=== PATIENT | male | born 1980 | race Caucasian/White ===

== ENCOUNTER 2021-10-08 19:04 | Outpatient (REF) | payer BC, MEDICAID, SELFPAY ==
[2021-10-08 21:41] LABS: Calculated LDL 120 mg/dL (<100); Cholesterol 178 mg/dL (<200); HDL Cholesterol 37 mg/dL (40-60); Triglyceride 109 mg/dL (<150)
== END 2021-10-08 19:05 | disposition home or self-care (01) ==
LOC: NCHCN 19:04
PROVIDERS: PCP Internal Medicine; Visit Provider Internal Medicine
DX: Z13.220 Encounter for screening for lipoid disorders (principal)
CPT/HCPCS: 80061

== ENCOUNTER → 2022-07-10 08:29 | Outpatient (BNVA) | payer MEDICARE, SELFPAY | PROVIDERS: PCP Internal Medicine; Referring Provider Internal Medicine; Visit Provider Psychiatry & Neurology Neurology | DX: G43.709 Chronic migraine without aura, not intractable, without status migrainosus (principal); G40.109 Localization-related (focal) (partial) symptomatic epilepsy and epileptic syndromes with simple partial seizures, not intractable, without status epilepticus; R41.89 Other symptoms and signs involving cognitive functions and awareness; U09.9 Post COVID-19 condition, unspecified; R25.1 Tremor, unspecified | CPT/HCPCS: 99214 ==

== ENCOUNTER 2022-08-12 04:18 | Outpatient (CLI) | payer MEDICARE, SELFPAY ==
--- NOTE | 2022-08-17 21:16 | PDOC.EEG_ITS ---
Neurology EEG EEG: [facility] Department of Neurology LONG-TERM AMBULATORY EEG REPORT Date of Recordin08/12/22 at 15:21:38 to 08/13/22 at 09:27:03 Interpreting Physician: Dr. Kaylan Wood PCP/Referring Provider: Dr. Bernard Bell Reason for study: David has a known history of focal seizures and non-epileptic events with more recent staring spells and confusion s/p COVID infection. Current Medications: Home Medications Medication Instructions Recorded Confirmed Type cholecalciferol (vitamin D3) 25 1,000 unit PO DAILY 09/10/17 07/10/22 History mcg (1,000 unit) tablet pediatric multivitamin no.19-folic 200 mcg PO DAILY 09/10/17 07/10/22 History acid 200 mcg chewable tablet (Flintstones Multi-Vitamins Gummies) melatonin 5 mg tablet 5 mg PO HS PRN 09/27/18 07/10/22 History topiramate 200 mg tablet (Topamax) 200 mg PO BID #180 tabs 11/05/21 07/10/22 Rx METHODS: An 18-channel digitized electroencephalogram was recorded in the ambulatory setting with video. The 10/20 international system of electrode placement was used and bipolar and referential electrode montages were recorded. In addition to EEG the patient was monitored for EKG and by video. Activation procedures of photic stimulation and hyperventilation were performed if applicable. The duration of the recording was ~18 hours. DESCRIPTION OF EEG: Waking background activity: During maximal wakefulness a 9-Hz posterior background rhythm was present which was well-modulated, symmetrical, reactive to eye opening, and of moderate voltage. Faster frequencies were present in the bilateral anterior head regions. There was a normal anterior-posterior voltage gradient. Drowsy and sleeping background activity: During drowsiness, there was attenuation of the posterior dominant background rhythm and vertex waves. Normal stage II and III sleep was present with symmetrical sleep spindles, K- complexes, and vertex waves with slowing of the background rhythm to delta/theta frequencies. REM sleep manifested by rapid lateral eye movements and faster background rhythms was recorded. Arousal was unremarkable. Interictal abnormalities: Occasional bilateral, high-amplitude, independent temporal spike-waves, maximal at T3 and F4, with large mcnamara. These discharges became much more frequent during sleep, particularly on the right, occurring in runs up to 8 seconds duration. Ictal findings: No events captured. Activating Procedures: Photic stimulation was performed which produced no posterior driving response. Hyperventilation was not performed. EKG: EKG revealed normal sinus rhythm. INTERPRETATION: This long-term EEG is abnormal due to bilateral, independent temporal spike- waves, maximal at T3 and F4, which become quite frequent during sleep. No events captured. PRIOR EEG: -EEG (08/08/05): normal in the awake and drowsy state. -Video EEG (02/28 to 03/06/10 at [facility] [place]): interictal bilateral temporal independent spike waves.? Several events were captured manifested as a feeling funny, brief muscle twitch with head turning to the right, subjective left arm shaking, and right greater than left arm shaking. All of these were not associated with any type of EEG abnormalities. He was subsequently diagnosed with psychogenic nonepileptic seizures. ? -Amb EEG (10/22/17-10/24/17): Frequent, right>left bitemporal spike- and sharp- wave discharges.? 2 typical events captured manifested by hand shaking and a few head jerks and hand shaking with mild dizziness with no associated epileptiform changes.? He also had frequent nocturnal arousals. 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 Overall, this EEG is similar to previous recordings. No events were captured. Kaylan Wood MD
== END 2022-08-12 04:19 | disposition home or self-care (01) ==
LOC: RT 04:18
PROVIDERS: PCP Internal Medicine; Visit Provider Psychiatry & Neurology Neurology
DX: G40.109 Localization-related (focal) (partial) symptomatic epilepsy and epileptic syndromes with simple partial seizures, not intractable, without status epilepticus (principal)
CPT/HCPCS: 95714; 95720

== ENCOUNTER → 2022-08-26 13:29 | Outpatient (BNVA) | payer MEDICARE, SELFPAY | PROVIDERS: PCP Internal Medicine; Referring Provider Internal Medicine; Visit Provider Psychiatry & Neurology Neurology | DX: G43.009 Migraine without aura, not intractable, without status migrainosus (principal); G40.109 Localization-related (focal) (partial) symptomatic epilepsy and epileptic syndromes with simple partial seizures, not intractable, without status epilepticus; R25.1 Tremor, unspecified | CPT/HCPCS: 99214 ==

== ENCOUNTER → 2022-11-04 12:51 | Outpatient (BNVA) | payer MEDICARE, MEDICAID, SELFPAY | PROVIDERS: PCP Internal Medicine; Referring Provider Internal Medicine; Visit Provider Psychiatry & Neurology Neurology | DX: G40.109 Localization-related (focal) (partial) symptomatic epilepsy and epileptic syndromes with simple partial seizures, not intractable, without status epilepticus (principal); G43.009 Migraine without aura, not intractable, without status migrainosus; G31.84 Mild cognitive impairment of uncertain or unknown etiology; G47.33 Obstructive sleep apnea (adult) (pediatric); R25.1 Tremor, unspecified | CPT/HCPCS: 99214 ==

== ENCOUNTER 2022-12-05 01:22 | Outpatient (CLI) | payer MEDICARE, MEDICAID, SELFPAY ==
[2022-12-07 13:59] LABS: Levetiracetam 15.7 mcg/mL
[2022-12-08 20:50] LABS: Topiramate 15.8 mcg/mL
== END 2022-12-05 01:23 | disposition home or self-care (01) ==
LOC: LBO 01:23
PROVIDERS: PCP Internal Medicine; Visit Provider Psychiatry & Neurology Neurology
DX: G40.109 Localization-related (focal) (partial) symptomatic epilepsy and epileptic syndromes with simple partial seizures, not intractable, without status epilepticus (principal); Z51.81 Encounter for therapeutic drug level monitoring; Z79.899 Other long term (current) drug therapy
CPT/HCPCS: 36415; 80177; 80201

== ENCOUNTER 2022-12-08 19:09 | Outpatient (REF) | payer MEDICARE, MEDICAID, SELFPAY ==
[2022-12-08 15:07] LABS: HCT 51.1 % (40.0-50.0); HGB 17.3 g/dL (13.5-17.5); MCH 29.7 pg (27.0-33.0); MCHC 33.9 % (32.0-36.0); MCV 88 fL (80-95); MPV 11.2 fL (8.0-11.0); Platelet Count 181 10^3/uL (130-400); RBC 5.82 10^6/uL (4.36-5.78); RDW 12.4 % (11.8-14.1); RDW-SD 40.2 fL
[2022-12-08 15:47] LABS: ALT 33 U/L (16-63); AST 16 U/L (15-37); Albumin 4.4 g/dL (3.4-5.0); Alkaline Phosphatase 110 U/L (46-116); BUN 21 mg/dL (7-18); Bilirubin, Total 0.3 mg/dL (0.2-1.0); Calcium 9.2 mg/dL (8.5-10.1); Chloride 108 mmol/L (98-107); Estimated GFR 96.97 (mL/min/1.73m2); Glucose 107 mg/dL (74-106); Potassium 4.4 mmol/L (3.5-5.1); Sodium 144 mmol/L (136-145); TSH 2.04 uIU/mL (0.36-3.74); Vitamin B12 269 pg/mL (193-986)
== END 2022-12-08 19:10 | disposition home or self-care (01) ==
LOC: NCHCN 19:09
PROVIDERS: PCP Internal Medicine; Visit Provider Internal Medicine
DX: R56.9 Unspecified convulsions (principal); G80.9 Cerebral palsy, unspecified; R41.0 Disorientation, unspecified; F79 Unspecified intellectual disabilities; E53.8 Deficiency of other specified B group vitamins
CPT/HCPCS: 80053; 85027; 82607; 84443

== ENCOUNTER → 2022-12-10 10:30 | Outpatient (BNVA) | payer MEDICARE, MEDICAID, SELFPAY | PROVIDERS: PCP Internal Medicine; Referring Provider Internal Medicine; Visit Provider Psychiatry & Neurology Neurology | DX: R40.4 Transient alteration of awareness (principal); G43.709 Chronic migraine without aura, not intractable, without status migrainosus; G31.84 Mild cognitive impairment of uncertain or unknown etiology; G47.33 Obstructive sleep apnea (adult) (pediatric); Z86.16 Personal history of COVID-19; R25.1 Tremor, unspecified | CPT/HCPCS: 99214 ==

== ENCOUNTER 2022-12-16 02:55 | Outpatient (CLI) | payer MEDICARE, MEDICAID, SELFPAY ==
--- NOTE | 2022-12-29 13:29 | PDOC.EEG_ITS ---
Neurology EEG EEG: [facility] Department of Neurology LONG-TERM AMBULATORY EEG REPORT Date of Recordin12/16/22 at 15:35:59 to 12/18/22 at 16:00:04 Interpreting Physician: Dr. Kaylan Wood PCP/Referring Provider: Dr. Bernard Bell Reason for study: David has a known history of focal seizures and non-epileptic events with more recent and increasing staring spells and confusion s/p COVID infection and despite increase in anti-seizure medications. Current Medications: Home Medications Medication Instructions Recorded Confirmed Type cholecalciferol (vitamin D3) 25 1,000 unit PO DAILY 09/10/17 12/10/22 History mcg (1,000 unit) tablet pediatric multivitamin no.19-folic 200 mcg PO DAILY 09/10/17 12/10/22 History acid 200 mcg chewable tablet (Flintstones Multi-Vitamins Gummies) melatonin 5 mg tablet 5 mg PO HS PRN 09/27/18 12/10/22 History topiramate 200 mg tablet (Topamax) 200 mg PO BID #180 tabs 08/26/22 12/10/22 Rx lorazepam 0.5 mg tablet 0.5 mg PO ONCE PRN 12/10/22 12/10/22 Rx anxiety/claustrophobia #3 tabs METHODS: An 18-channel digitized electroencephalogram was recorded in the ambulatory setting with video. The 10/20 international system of electrode placement was used and bipolar and referential electrode montages were recorded. In addition to EEG the patient was monitored for EKG and by video. Activation procedures of photic stimulation and hyperventilation were performed if applicable. The duration of the recording was ~46 hours. DESCRIPTION OF EEG: Waking background activity: During maximal wakefulness a 10-Hz posterior background rhythm was present which was well-modulated, symmetrical, reactive to eye opening, and of moderate voltage. Faster frequencies were present in the bilateral anterior head regions. There was a normal anterior-posterior voltage gradient. Drowsy and sleeping background activity: During drowsiness, there was atte nuation of the posterior dominant background rhythm and vertex waves. Normal stage II and III sleep was present with symmetrical sleep spindles, K-complexes, and vertex waves with slowing of the background rhythm to delta/theta frequencies. REM sleep manifested by rapid lateral eye movements and faster background rhythms was recorded. Arousal was unremarkable. Interictal abnormalities: Frequent bilateral, right>left, high-amplitude, independent, temporal spike-waves, maximal at T3 and F4, with large mcnamara, particularly on the right.? The discharges on the right were more apt to occur in runs up to 3-5 seconds. Ictal findings: No events were captured. Activating Procedures: Photic stimulation was performed which produced no posterior driving response. Hyperventilation was performed with moderate effort and produced no physiological slowing of the background. EKG: EKG revealed normal sinus rhythm. INTERPRETATION: This long-term EEG is abnormal due to frequent, bilateral, independent, right > left, temporal spike-waves, maximal at T3 and F4, with at times occurring in runs of 3-5 seconds at at times with a broad field, particularly on the right. No events captured. PRIOR EEG: -EEG (08/08/05): normal in the awake and drowsy state. -Video EEG (02/28 to 03/06/10 at [facility] [place]): interictal bilateral temporal independent spike waves.? Several events were captured manifested as a feeling funny, brief muscle twitch with head turning to the right, subjective left arm shaking, and right greater than left arm shaking. All of these were not associated with any type of EEG abnormalities. He was subsequently diagnosed with psychogenic nonepileptic seizures. ? -Amb EEG (10/22/17-10/24/17): Frequent, right>left bitemporal spike- and sharp- wave discharges.? 2 typical events captured manifested by hand shaking and a few head jerks and hand shaking with mild dizziness with no associated epileptiform changes.? He also had frequent nocturnal arousals. -Amb EEG (08/12/22-08/13/22 x 18hr): bilateral, independent temporal spike-waves, maximal at T3 and F4, which become quite frequent during sleep.? 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 Overall, this EEG is similar to previous recordings.? No events were captured. Kaylan Wood MD
== END 2022-12-16 02:56 | disposition home or self-care (01) ==
PROVIDERS: PCP Internal Medicine; Visit Provider Psychiatry & Neurology Neurology
DX: R68.89 Other general symptoms and signs (principal); R25.1 Tremor, unspecified
CPT/HCPCS: 95714; 95722

== ENCOUNTER 2023-01-02 00:41 | Outpatient (CLI) | payer MEDICARE, MEDICAID, SELFPAY ==
--- NOTE | 2023-01-02 08:30 | DI.MRI_ITS ---
Exam(s) MR BRAIN WO EXAM: MR BRAIN WO CLINICAL HISTORY: increase spells and memory changes,FOCAL EPILEPSY,G40.109 TECHNIQUE: Multiplanar multisequence MRI of the brain was performed. COMPARISON: No exams were available for comparison FINDINGS: CEREBRAL PARENCHYMA: There is no evidence of intracranial hemorrhage, mass effect, or shift of midline structures. There are no extra-axial fluid collections. Ventricles are not enlarged or shifted. There is no significant focal signal abnormality in the cerebellar hemispheres nor within the alex, m idbrain, and thalami. There is no abnormal signal abnormality in the periventricular white matter. There is no significant focal signal abnormality evident on diffusion imaging to suggest acute ischem ic event. PITUITARY GLAND: No mass nor parasellar abnormality. No obvious abnormality in the cavernous sinuses. FLOW VOIDS: The expected flow void are noted. No evidence of obvious aneurysm nor obvious vascular ma lformation. PARANASAL SINUSES: The visualized paranasal sinuses appear unremarkable. No obvious finding ORBITS: No obvious findings. IMPRESSION: No significant intracranial findings on this noninfused MRI scan of the brain. DATA REPOSITORY:
== END 2023-01-02 01:01 ==
LOC: DI 00:41
PROVIDERS: PCP Internal Medicine; Visit Provider Psychiatry & Neurology Neurology
DX: G40.109 Localization-related (focal) (partial) symptomatic epilepsy and epileptic syndromes with simple partial seizures, not intractable, without status epilepticus (principal)
CPT/HCPCS: 70551

== ENCOUNTER → 2023-01-06 11:22 | Outpatient (BNVA) | payer MEDICARE, MEDICAID, SELFPAY | PROVIDERS: PCP Internal Medicine; Referring Provider Internal Medicine; Visit Provider Psychiatry & Neurology Neurology ==

== ENCOUNTER → 2023-01-22 11:18 | Outpatient (BNVA) | payer MEDICARE, MEDICAID, SELFPAY | PROVIDERS: PCP Internal Medicine; Referring Provider Internal Medicine; Visit Provider Psychiatry & Neurology Neurology | DX: G43.009 Migraine without aura, not intractable, without status migrainosus (principal); G40.109 Localization-related (focal) (partial) symptomatic epilepsy and epileptic syndromes with simple partial seizures, not intractable, without status epilepticus; U09.9 Post COVID-19 condition, unspecified; R25.1 Tremor, unspecified; E53.8 Deficiency of other specified B group vitamins | CPT/HCPCS: 99204 ==

== ENCOUNTER → 2023-09-09 08:15 | Outpatient (BNVA) | payer MEDICARE, MEDICAID, SELFPAY | PROVIDERS: PCP Internal Medicine; Referring Provider Internal Medicine; Visit Provider Psychiatry & Neurology Neurology | DX: F81.9 Developmental disorder of scholastic skills, unspecified (principal); R47.9 Unspecified speech disturbances; G43.009 Migraine without aura, not intractable, without status migrainosus; G40.109 Localization-related (focal) (partial) symptomatic epilepsy and epileptic syndromes with simple partial seizures, not intractable, without status epilepticus; U09.9 Post COVID-19 condition, unspecified; R25.1 Tremor, unspecified | CPT/HCPCS: 99214 ==

== ENCOUNTER 2023-10-22 14:56 | Outpatient (REF) | payer MEDICARE, MEDICAID, SELFPAY ==
[2023-10-22 16:33] LABS: HCT 45.7 % (40.0-50.0); HGB 15.5 g/dL (13.5-17.5); MCH 29.2 pg (27.0-33.0); MCHC 33.9 % (32.0-36.0); MCV 86 fL (80-95); MPV 10.9 fL (8.0-11.0); Platelet Count 255 10^3/uL (130-400); RDW 12.3 % (11.8-14.1); RDW-SD 38.8 fL; WBC 7.35 10^3/uL (4.4-10.8)
[2023-10-22 16:45] LABS: ALT 43 U/L (16-63); AST 22 U/L (15-37); Alkaline Phosphatase 119 U/L (46-116); Anion Gap 14.4 mmol/L (3-11); BUN 25 mg/dL (7-18); Bilirubin, Total 0.3 mg/dL (0.2-1.0); CO2 20.6 mmol/L (21.0-32.0); CREATININE 0.9 mg/dL (0.70-1.30); Calcium 8.8 mg/dL (8.5-10.1); Chloride 109 mmol/L (98-107); Estimated GFR 109.36 (mL/min/1.73m2); Glucose 98 mg/dL (74-106); Potassium 4.1 mmol/L (3.5-5.1); Sodium 144 mmol/L (136-145); Total Protein 7.5 g/dL (6.4-8.2)
[2023-10-26 18:28] LABS: Vitamin B12 405 pg/mL (211-911)
== END 2023-10-22 14:57 | disposition home or self-care (01) ==
LOC: NCHCN 14:56
PROVIDERS: Psychiatry & Neurology Neurology; PCP Family Medicine; Visit Provider Family Medicine
DX: G40.909 Epilepsy, unspecified, not intractable, without status epilepticus (principal)
CPT/HCPCS: 80053; 85027; 80201; 82607

== ENCOUNTER → 2024-03-14 12:42 | Outpatient (BNVA) | payer MEDICARE, MEDICAID, SELFPAY | PROVIDERS: PCP Family Medicine; Visit Provider Psychiatry & Neurology Neurology | DX: G43.009 Migraine without aura, not intractable, without status migrainosus (principal); G40.109 Localization-related (focal) (partial) symptomatic epilepsy and epileptic syndromes with simple partial seizures, not intractable, without status epilepticus; R25.1 Tremor, unspecified; R47.9 Unspecified speech disturbances | CPT/HCPCS: 99214 ==

== ENCOUNTER → 2024-05-16 14:41 | Outpatient (BNVA) | payer MEDICARE, MEDICAID, SELFPAY | PROVIDERS: PCP Family Medicine; Referring Provider Family Medicine; Visit Provider Psychiatry & Neurology Neurology | DX: G80.0 Spastic quadriplegic cerebral palsy (principal); G40.109 Localization-related (focal) (partial) symptomatic epilepsy and epileptic syndromes with simple partial seizures, not intractable, without status epilepticus; G43.009 Migraine without aura, not intractable, without status migrainosus; R25.1 Tremor, unspecified; R47.9 Unspecified speech disturbances | CPT/HCPCS: 99213 ==

== ENCOUNTER 2024-08-26 01:03 | Outpatient (CLI) | payer MEDICARE, MEDICAID, SELFPAY ==
--- OUTSIDE RECORDS SUMMARY | 2024-08-26 01:08 | XMS_ITS | Referral Summary ---
Author Organization [facility] Address [address] [place] [address] Care Team Providers Care Bit Sharpener Operator Name Role Phone Lorenzo Luong MD Primary Care Provider Social History Tobacco Use Types Packs/Day Years Used Date Smoking Tobacco: Never Assessed Sex and Gender Information Value Date Recorded Sex Assigned at Not on file Legal Sex Male 17:37 EST Gender Identity Not on file Sexual Orientation Not on file Plan of Treatment Not on file Care Teams Bit Sharpener Operator Relationship Specialty Start Date End Date Lorenzo Luong MD [address] [place] [id number] PCP - General 06/17/15
--- OUTSIDE RECORDS SUMMARY | 2024-08-26 01:08 | XMS_ITS | Clinical Summary ---
Author Organization [facility] Address [address] [place] [address] Care Team Providers Care Packager Hand Name Role Phone Lorenzo Luong MD Primary Care Provider Social History Tobacco Use Types Packs/Day Years Used Date Smoking Tobacco: Never Assessed Sex and Gender Information Value Date Recorded Sex Assigned at Not on file Legal Sex Male 17:37 EST Gender Identity Not on file Sexual Orientation Not on file Plan of Treatment Health Maintenance Due Date Last Done Comments Hepatitis C Screen 1981 Hepatitis B Vaccine (1 of 3 - 19+ 3-dose series) 04/28 COVID-19 Vaccine ( season) 2024 Care Teams Packager Hand Relationship Specialty Start Date End Date Lorenzo Luong MD [address] [place] [id number] PCP - General 06/17/15
--- OUTSIDE RECORDS SUMMARY | 2024-08-26 01:08 | XMS_ITS | Encounter Summary ---
Author Organization [facility] Address [address] [place] [address] Care Team Providers Care Database Development Project Manager Name Role Phone Lorenzo Luong MD Primary Care Provider Encounter Details Date Type Department Care Team (Late st Contact Info) Description 10/26/2023 Lab Requisition [facility] - [address] [id number] Outr Resulting Lab, Provider Social History Tobacco Use Types Packs/Day Years Used Date Smoking Tobacco: Never Assessed Sex and Gender Information Value Date Recorded Sex Assigned at Not on file Legal Sex Male 17:37 EST Gender Identity Not on file Sexual Orientation Not on file documented as of this encounter Plan of Treatment Not on file documented as of this encounter Procedures Procedure Name Priority Date/Time Associated Diagnosis Comments VITAMIN B12 Routine 10/25/2023 11:15 EDT documented in this encounter Results * VITAMIN B12 (10/25/2023 11:15 EDT) Vitamin B12 405 211 - 911 pg/mL 10/26/2023 18:23 EDT [facility] Blood VENOUS BLOOD / Unknown 10/25/2023 11:15 EDT 10/26/2023 16:50 EDT us Provider Outr Resulting Lab CHEMISTRY & BLOOD GA S ORDERABLES Final Result [facility] [address] [place], [place] [id number] documented in this encounter Visit Diagnoses Not on filedocumented in this encounter Care Teams Database Development Project Manager Relationship Specialty Start Date End Date Lorenzo Luong MD [address] [place] [phone] PCP - General 06/17/15 documented as of this encounter
[2024-08-26 15:05] LABS: HCT 46.1 % (40.0-50.0); HGB 15.6 g/dL (13.5-17.5); MCH 29.7 pg (27.0-33.0); MCHC 33.8 % (32.0-36.0); MCV 88 fL (80-95); MPV 10.3 fL (8.0-11.0); Platelet Count 225 10^3/uL (130-400); RBC 5.26 10^6/uL (4.36-5.78); RDW 12.9 % (11.8-14.1); RDW-SD 41.3 fL; WBC 6.92 10^3/uL (4.4-10.8)
[2024-08-26 15:52] LABS: ALT 36 U/L (16-63); AST 19 U/L (15-37); Albumin 4.1 g/dL (3.4-5.0); Alkaline Phosphatase 125 U/L (46-116); Anion Gap 9.4 mmol/L (3-11); BUN 27 mg/dL (7-18); CO2 25.6 mmol/L (21.0-32.0); CREATININE 1.2 mg/dL (0.70-1.30); Calcium 9.5 mg/dL (8.5-10.1); Chloride 111 mmol/L (98-107); Estimated GFR 76.95 (mL/min/1.73m2); Glucose 86 mg/dL (74-106); Potassium 3.8 mmol/L (3.5-5.1); Sodium 146 mmol/L (136-145); Total Protein 8.1 g/dL (6.4-8.2)
[2024-08-29 11:54] LABS: Lacosamide 3.9 mcg/mL (1.0 - 10.0)
== END 2024-08-26 01:04 | disposition home or self-care (01) ==
LOC: LBO 01:03
PROVIDERS: PCP Family Medicine; Visit Provider Psychiatry & Neurology Neurology
DX: G40.109 Localization-related (focal) (partial) symptomatic epilepsy and epileptic syndromes with simple partial seizures, not intractable, without status epilepticus (principal)
CPT/HCPCS: 36415; 80053; 85027; 80235

== ENCOUNTER → 2024-11-21 15:21 | Outpatient (BNVA) | payer MEDICARE, MEDICAID, SELFPAY | PROVIDERS: PCP Family Medicine; Visit Provider Psychiatry & Neurology Neurology | DX: G43.009 Migraine without aura, not intractable, without status migrainosus (principal); G40.109 Localization-related (focal) (partial) symptomatic epilepsy and epileptic syndromes with simple partial seizures, not intractable, without status epilepticus; R25.1 Tremor, unspecified; F81.9 Developmental disorder of scholastic skills, unspecified; R47.9 Unspecified speech disturbances; R63.4 Abnormal weight loss; G80.9 Cerebral palsy, unspecified | CPT/HCPCS: 99214 ==